=== PATIENT | female | born 1985 | race Caucasian/White ===

== ENCOUNTER 2021-04-30 13:04 | Emergency (ER) | payer BC ==
[~2021-04-30] VITALS: Ht 170.2 cm; Wt 72.5 kg
[2021-04-30] MEDS ORDERED: LORTAB 7.57.5 MG PO (16:04)
[2021-04-30 17:05] VITALS: BP 120/68
== END 2021-04-30 17:07 | disposition home or self-care (01) | DRG 563 ==
LOC: ED 13:04
PROC: 2W3QX1Z Immobilization of Right Lower Leg using Splint (ICD-10-PCS; principal; 2021-04-30)
DX: S82.61XA Displaced fracture of lateral malleolus of right fibula, initial encounter for closed fracture (principal); V48.4XXA Person boarding or alighting a car injured in noncollision transport accident, initial encounter